=== PATIENT | female | born 1950 | race American Indian/Alaskan Native ===

== ENCOUNTER 2020-11-29 06:37 | Inpatient (IN) | payer BC, MEDICARE ==
[~2020-11-29 06:37] MED LIST: ceFAZolin/STERILE WATER 2 GM/20 ML SYRINGE IV NR
[2020-11-29] MEDS ORDERED: BUPIVACAINE/PF (0.5%) 5 MG/1 ML 30 ML VIAL INFILTRATI ONE ×3 (07:23→09:42)
[2020-11-29] MEDS ORDERED: HEPARIN 10,000 UNITS/10 ML VIAL ONE (07:23)
[2020-11-29] MEDS ORDERED: LIDOCAINE (1%) 10 MG/1 ML VIAL 20 ML MDV ONE (07:23)
[2020-11-29] MEDS ORDERED: SODIUM CHLORIDE P/F VIAL 10 ML 10 ML ONE (07:23)
[2020-11-29] MEDS ORDERED: rifAMPin 600 MG VIAL ONE (07:24)
[2020-11-29] MEDS ORDERED: SODIUM CHLORIDE 0.9% 500 ML 1,000 ML ONE (07:24)
[2020-11-29] MEDS ORDERED: SODIUM CHLORIDE 0.9% 250ML 250 ML ONE (07:44)
[2020-11-29 07:45] LABS: Hematocrit 28.1 % (30.3-42.9); Hemoglobin 9.1 gm/dl (10.1-14.3); Mean Corpuscular HGB Conc 32 % (30-34); Mean Corpuscular Volume 82 fl (79-97); Platelet Count 111 K/mm3 (140-440); Red Blood Count 3.42 M/mm3 (3.65-5.03); Red Cell Distribution Width 17.5 % (13.2-15.2)
[2020-11-29 07:58] LABS: Calcium 9.2 mg/dL (8.4-10.2)
[2020-11-29] MEDS ORDERED: SODIUM CHLORIDE 0.9% 1000 ML 1,000 ML IV SCH (08:00)
--- NOTE | 2020-11-29 08:12 | Anesthesia Consultation ---
Anesthesia Consult and Med Hx Date of service: 11/29/20 - Airway Anesthetic Teeth Evaluation: Good ROM Head & Neck: Adequate Mental/Hyoid Distance: Adequate Mallampati Class: Class II Intubation Access Assessment: Probably Good - Pulmonary Exam CTA: Yes - Pre-Operative Health Status ASA Pre-Surgery Classification: ASA3 Proposed Anesthetic Plan: General Nerve Block: LeftSupraclavicular block - Pulmonary Hx Smoking: No SOB: Yes Home Oxygen Therapy: Yes Hx Sleep Apnea: Yes (Not compliant with CPAP machine use) - Cardiovascular System Hx Hypertension: Yes Hx Coronary Artery Disease: Yes (Chronic Ischemic Heart Disease) Hx Cardia Arrhythmia: Yes (Atrial Fibrillaton) - Central Nervous System Hx Neuromuscular Disorder: No Hx Seizures: No Hx Psychiatric Problems: No - Endocrine Hx Renal Disease: Yes Hx End Stage Renal Disease: Yes Hx Liver Disease: No Hx Non-Insulin Dependent Diabetes: Yes (Remote Hx) Hx Thyroid Disease: Yes (Thyroid Nodule removal) - Hematic Hx Anemia: Yes - Other Systems Hx Alcohol Use: No Hx Substance Use: No Hx Cancer: No Hx Obesity: Yes - Additional Comments Anesthesia Medical History Comments: Patient deied previous anesthesia complications
[2020-11-29] MEDS ORDERED: MIDAZOLAM 2 MG/2 ML INJ ONE (08:20)
--- NOTE | 2020-11-29 08:20 | Anesthesia Day of Surgery ---
Anesthesia Day of Surgery - Day of Surgery Patient Examined: Yes Patient H&P Reviewed: Yes Patient is NPO: Yes Beta Blockers: No Cardiac Clearance: No Pulmonary Clearance: No Hal's Test: N/A
[2020-11-29] MEDS ORDERED: fentaNYL 100 MCG/2 ML INJ ONE (08:21)
[2020-11-29] MEDS ORDERED: propofoL 200 MG/20 ML VIAL IV ONE (08:26)
[2020-11-29] MEDS ORDERED: ONDANSETRON 4 MG/2 ML INJ ONE (08:26)
[2020-11-29] MEDS ORDERED: LIDOCAINE MPF (2%) 20 MG/1 ML VIAL 5 ML ONE (08:26)
[2020-11-29] MEDS ORDERED: HEPARIN 10,000 UNITS/10 ML VIAL IV ONE ×2 (09:42→09:43)
[2020-11-29] MEDS ORDERED: SODIUM CHLORIDE 0.9% P/F 10 ML VIAL IV ONE (09:43)
[2020-11-29] MEDS ORDERED: rifAMPin 600 MG VIAL IV ONE (09:43)
[2020-11-29] MEDS ORDERED: SODIUM CHLORIDE 0.9% IRR 500 ML BOTTLE IR ONE (09:44)
[2020-11-29] MEDS ORDERED: ePHEDrine SULFATE 50 MG/1 ML INJ ONE ×2 (09:52→11:24)
[2020-11-29] MEDS ORDERED: PHENYLEPHRINE/NS 1,000 MCG/10 ML SYRINGE (OR USE) IV ONE ×2 (10:00→11:40)
--- NOTE | 2020-11-29 11:10 | Short Stay Summary ---
Short Stay Documentation Date of service: 11/29/20 Narrative H&P: See H&P - History H&P: obtained from office - Allergies and Medications Current Medications: Allergies No Known Allergies Allergy (Verified 07/26/15 02:53) Home Medications Medication Instructions Recorded Confirmed Last Taken Type Gabapentin [Neurontin] 400 mg PO HS 07/26/15 11/29/20 11/28/20 History carvediloL [Coreg] 12.5 mg PO BID 07/26/15 11/22/20 11/29/20 05:00 History Apixaban [Eliquis] 5 mg PO BID 11/22/20 11/22/20 11/29/20 05:00 History amLODIPine/ATORVASTATIN [Caduet 5 1 each PO QDAY 11/22/20 11/29/20 11/29/20 0 5:00 History mg-20 mg] Active Medications Cefazolin Sodium (Cefazolin/Sterile Water 2 Gm/20 Ml Syringe) 2 gm IV PREOP NR Stop: 11/29/20 23:00 Sodium Chloride (Nacl 0.9% 1000 Ml) 1,000 mls @ 42 mls/hr IV DIRECT MILENA Last Admin: 11/29/20 07:25 Dose: 42 mls/hr Documented by: - Brief post op/procedure progress note Date of procedure: 11/29/20 Pre-op diagnosis: End-Stage Renal Disease Post-op diagnosis: same Procedure: Creation of Left Brachiocephalic Arteriovenous Fistula Anesthesia: MAC, regional Surgeon: HUNTER BUTLER Estimated blood loss: minimal Pathology: none Condition: stable - Disposition Condition at discharge: Good Disposition: 01 HOME / SELF CARE / HOMELESS Short Stay Discharge Plan Activity: other (No heavy lifting with left arm for 2 weeks. You stress ball the left hand as often as possible.) Wound: open to air, keep clean and dry, other (Okay to wash the left arm wound with soap and water but do not soak in water for 2 weeks.) Follow up with: HUNTER BUTLER MD [Staff Physician] - 14 Days Prescriptions: HYDROcodone/APAP 5-325 [[place] 5/325] 1 each PO Q4HR PRN #30 tablet PRN Reason: Pain
--- NOTE | 2020-11-29 11:13 | Operative Report ---
Operative Report Operative Report: Date of procedure: 11/29/2020 Pre-operative diagnosis: End-Stage Renal Disease Post-operative diagnosis: End-Stage Renal Disease Procedure(s): Creation of Left brachial Artery to Cephalic Vein Arteriovenous Fistula Surgeon: Jared Hernandez MD Computational Chemist: None Anesthesia: Regional/MAC EBL: Minimal Counts: Correct Complications: None Condition: Stable Findings: Successful creation of left brachiocephalic arteriovenous fistula with palpable thrill and palpable radial pulse at the completion of the case. Specimen: None Indications: The patient is a 70-year-old female with a history of end-stage renal disease who is currently on hemodialysis through a right internal jugular permacath. She is in need of long-term dialysis access and did not have adequate vein for creation of an AV fistula. She was offered an AV graft and was given the risk, benefits, and alternative procedures and consented to the procedure. Description of Procedure: The patient had a regional block of the patient's left arm was performed in the preoperative area prior to being transported to the operating room. Once the regional block was performed the patient was transported to the operating room and adequate sedation was given. When the patient was sedated a timeout was performed and the patient's left arm was then prepped and draped in normal sterile fashion. The patient's vein mapping demonstrated she did not have adequate vein for creation of an arteriovenous fistula however once she had a regional block and was in the operating room her veins were clearly dilated and her cephalic vein appeared to be visibly adequate for creation of a fistula. I used the ultrasound to evaluate the cephalic vein along its course in the upper arm and it was of adequate size and without thrombus. I made the decision to create a fistula and abandon the plan for creation of an arteriovenous graft. A transverse incision was then made and carried down to the cephalic vein using sharp dissection. The vein was dissected out both proximally and distally and suture ligated and divided distally. I flushed the vein with heparinized saline and flow was controlled with a bulldog clamp. I then dissected out the brachial artery through this incision circumferentially both proximal and distal and controlled the artery with vessel loops. I systemically heparinized the patient with 3000 units of heparin IV and used angled DeBakey clamps to control flow through the artery. I created an arteriotomy using an 11 blade and Marie scissors. I created an end to side anastomosis between the cephalic vein and brachial artery using a 6-0 Prolene in running fashion. Prior to completing the anastomosis I flashed the artery both proximally and distally and then flushed the anastomosis with heparinized saline to remove any debris. I then completed the anastomosis and removed all clamps allowing flow into the fistula which had an adequate thrill. I achieved hemostasis with a combination of Quick Clot and electrocautery. Once hemostasis had been achieved I closed the wound in 2 laye rs using a 3-0 Vicryl in a running fashion in the deep dermal layer and a 4-0 Monocryl in running fashion in the subcuticular layer. I then dressed the wound with Dermabond. The patient tolerated the procedure well. All sponge, needle, and instrument counts were correct. The patient was taken to the recovery area in stable condition.
[2020-11-29] MEDS ORDERED: ONDANSETRON 4 MG/2 ML INJ IV PRN ×2 (11:30→17:28)
[2020-11-29] MEDS ORDERED: ePHEDrine SULFATE 50 MG/1 ML INJ IV ONE ×4 (11:35→13:25)
[2020-11-29] MEDS ORDERED: ePHEDrine SULFATE 50 MG/1 ML INJ IV NR ×2 (12:20→15:30)
[2020-11-29] MEDS ORDERED: VASOPRESSIN 20 UNIT/1 ML INJ IV ONE ×2 (13:30→15:30)
[2020-11-29] MEDS ORDERED: ePHEDrine SULFATE 50 MG/1 ML INJ IM ONE (13:30)
--- NOTE | 2020-11-29 15:59 | XRay Report ---
CHEST 1 VIEW 11/29/2020 3:32 PM INDICATION / CLINICAL INFORMATION: R/O PNEUMOTHORAX, PULMONARY EDEMA. COMPARISON: 07/25/2015. FINDINGS: SUPPORT DEVICES: Right IJ permacath has its tip over the right atrium. No pneumothorax. HEART / MEDIASTINUM: Moderate cardiomegaly. LUNGS / PLEURA: Mild vascular congestion/edema. Left base not well evaluated. Suspect small left basi lar effusion.. ADDITIONAL FINDINGS: No significant additional findings. IMPRESSION: 1. Right IJ dialysis catheter placement without complication. 2. Cardiomegaly with mild vascular congestion/edema. 3. Small left basilar effusion. The retrocardiac area is not well evaluated. Signer Name: Galdino Kimble MD Signed: 11/29/2020 3:53 PM Workstation Name: [id number]
--- NOTE | 2020-11-29 17:02 | History and Physical Report ---
History of Present Illness Date of examination: 11/29/20 Date of admission: 11/29/2020 Chief complaint: Hypotensive in PACU after surgery. History of present illness: 70-year-old female with history of end-stage renal disease on hemodialysis through a right internal jugular permacath had AV fistula creation from left brachial artery to cephalic vein arteriovenous fistula. Patient needs AV fistula for long-term dialysis access. Patient was offered AV graft removal given the risk benefits and alternative procedures consented to the procedure. Postop patient was hypotensive hence patient could not be discharged and was admitted to telemetry for further care. Patient was hypotensive for 1 hour and then normalized blood pressure. Patient being admitted to telemetry for observation. Saturations were around 92% on room air. Transiently very low postop but normalized. Patient responsive and alert and oriented. No fever or chills. Patient blood pressure was 100/65 at the time of admission to telemetry. Past History Past Medical History: hypertension, renal failure Past Surgical History: Other (AV fistula creation) Social history: lives with family, full code Family history: hypertension Medications and Allergies Allergies Allergy/AdvReac Type Severity Reaction Status Date / Time No Known Allergies Allergy Verified 07/26/15 02:53 Home Medications Medication Instructions Recorded Confirmed Last Taken Type Gabapentin 400 mg PO HS 07/26/15 11/29/20 11/28/20 History carvediloL [Coreg] 12.5 mg PO BID 07/26/15 11/22/20 11/29/20 05:00 History Apixaban [Eliquis] 5 mg PO BID 11/22/20 11/22/20 11/29/20 05:00 History amLODIPine/ATORVASTATIN [Caduet 5 1 each PO QDAY 11/22/20 11/29/20 11/29/20 05:00 History mg-20 mg] HYDROcodone/APAP 5-325 [[place] 1 each PO Q4HR PRN #30 tablet 11/29/20 Unknown Rx 5/325] Active Meds: Active Medications Cefazolin Sodium (Cefazolin/Sterile Water 2 Gm/20 Ml Syringe) 2 gm IV PREOP NR Stop: 11/29/20 23:00 Sodium Chloride (Nacl 0.9% 1000 Ml) 1,000 mls @ 42 mls/hr IV DIRECT MILENA Last Admin: 11/29/20 07:25 Dose: 42 mls/hr Documented by: Review of Systems All systems: negative Constitutional: no weight loss, no weight gain, no fever, no chills Ears, nose, mouth and throat: no ear pain, no ear discharge, no tinnitis, no decreased hearing Breasts: deferred Cardiovascular: no chest pain, no orthopnea, no lightheadedness, no shortness of breath Gastrointestinal: no abdominal pain, no nausea, no vomiting, no diarrhea, no constipation, no change in bowel habits, no hematemesis, no coffee ground emesis Musculoskeletal: no neck stiffness, no neck pain, no shooting arm pain, no arm numbness/tingling, no low back pain, no shooting leg pain, no leg numbness/tingling Integumentary: no rash, no pruritis, no redness Neurological: no head injury, no transient paralysis, no paralysis, no weakness, no lack of coordination Psychiatric: no anxiety, no memory loss, no change in sleep habits, no sleep disturbances, no insomnia Endocrine: no cold intolerance, no heat intolerance, no polyphagia, no excessive thirst Hematologic/Lymphatic: no easy bruising, no easy bleeding Allergic/Immunologic: no urticaria, no allergic rhinitis, no wheezing Exam - Constitutional Vitals: Temp Pulse Resp BP Pulse Ox 97.3 F L 99 H 20 96/59 100 11/29/20 16:30 11/29/20 16:45 11/29/20 16:45 11/29/20 16:45 11/29/20 16:45 General appearance: Present: no acute distress, well-nourished - EENT Eyes: Present: PERRL ENT: hearing intact, clear oral mucosa - Neck Neck: Present: supple, normal ROM - Respiratory Respiratory effort: normal Respiratory: bilateral: CTA - Cardiovascular Heart rate: 98 Rhythm: regular Heart Sounds: Present: S1 & S2. Absent: rub, click - Extremities Extremities: pulses symmetrical, No edema Peripheral Pulses: within normal limits - Abdominal General gastrointestinal: Present: soft, non-tender, non-distended, normal bowel sounds Female genitourinary: Present: normal - Integumentary Integumentary: Present: clear, warm, dry - Musculoskeletal Musculoskeletal: gait normal, strength equal bilaterally - Psychiatric Psychiatric: appropriate mood/affect, intact judgment & insight - Neurologic Neurologic: CNII-XII intact, moves all extremities - Allied Health Allied health notes reviewed: nursing, case management HEART Score - HEART Score History: Slightly suspicious Risk factors: 1-2 risk factors Troponin: < normal limit - Critical Actions Critical Actions: 0-3 pts:0.9-1.7%risk of adverse cardiac event.Candidate for discharge Results - Labs CBC & Chem 7: 11/29/20 18:22 11/30/20 04:11 Labs: Laboratory Last Values WBC 8.4 K/mm3 (4.5-11.0) 11/29/20 07:25 RBC 3.42 M/mm3 (3.65-5.03) L 11/29/20 07:25 Hgb 9.1 gm/dl (10.1-14.3) L 11/29/20 07:25 Hct 28.1 % (30.3-42.9) L 11/29/20 07:25 MCV 82 fl (79-97) 11/29/20 07:25 MCH 27 pg (28-32) L 11/29/20 07:25 MCHC 32 % (30-34) 11/29/20 07:25 RDW 17.5 % (13.2-15.2) H 11/29/20 07:25 Plt Count 111 K/mm3 (140-440) L 11/29/20 07:25 ABG pH 7.211 (7.320-7.450) L 11/29/20 14:23 POC ABG pCO2 50.4 mmHg (32.0-48.0) H 11/29/20 14:23 POC ABG pO2 60.8 mmHg (83-108) L 11/29/20 14:23 POC ABG HCO3 19.8 11/29/20 14:23 ABG O2 Saturation 81.7 (0-100) 11/29/20 14:23 POC ABG Base Excess -8.0 11/29/20 14:23 ABG Hemoglobin 10.4 (12.0-17.5) L 11/29/20 14:23 ABG Oxyhemoglobin 80.9 (94-98) L 11/29/20 14:23 ABG Methemoglobin 0.3 (0.0-1.5) 11/29/20 14:23 ABG Sodium 134.5 mmol/L (136.0-145.0) L 11/29/20 14:23 ABG Potassium 6.2 mmol/L (3.40-4.50) H 11/29/20 14:23 ABG Chloride 101.0 mmol/L (98-107) 11/29/20 14:23 ABG Glucose 76 mg/dL (65-95) 11/29/20 14:23 Carboxyhemoglobin 0.7 (0.5-1.5) 11/29/20 14:23 FiO2 % 100.0 11/29/20 14:23 Sodium 135 mmol/L (137-145) L 11/29/20 07:25 Potassium 4.9 mmol/L (3.6-5.0) 11/29/20 07:25 Chloride 97.8 mmol/L (98-107) L 11/29/20 07:25 Carbon Dioxide 26 mmol/L (22-30) 11/29/20 07:25 Anion Gap 16 mmol/L 11/29/20 07:25 BUN 34 mg/dL (7-17) H 11/29/20 07:25 Creatinine 3.2 mg/dL (0.6-1.2) H 11/29/20 07:25 Estimated GFR 17 ml/min 11/29/20 07:25 BUN/Creatinine Ratio 11 % 11/29/20 07:25 Glucose 118 mg/dL (65-100) H 11/29/20 07:25 POC Glucose 106 mg/dL (70-105) H 11/29/20 11:00 Calcium 9.2 mg/dL (8.4-10.2) 11/29/20 07:25 Arterial Blood Glucose 76 mg/dL (65-95) 11/29/20 14:23 Arterial Blood Ionized Calcium 4.6 mg/dL (4.6-5.3) 11/29/20 14:23 Coronavirus (PCR) Negative (Negative) 11/22/20 13:15 Short CBC 11/29/20 11/29/20 Range/Units 07:25 18:22 WBC 8.4 12.2 H (4.5-11.0) K/mm3 Hgb 9.1 L 9.8 L (10.1-14.3) gm/dl Hct 28.1 L 32.9 (30.3-42.9) % Plt Count 111 L 94 L (140-440) K/mm3 BMP 11/29/20 11/29/20 11/30/20 07:25 18:22 04:11 Sodium 135 L 137 134 L Potassium 4.9 5.6 H 7.3 H* D Chloride 97.8 L 99.3 99.7 Carbon Dioxide 26 20 L 12 L D BUN 34 H 38 H 40 H Creatinine 3.2 H 3.5 H 3.9 H Glucose 118 H 124 H 86 Calcium 9.2 8.8 8.7 Liver Function 11/30/20 Range/Units 04:11 Total Bilirubin 0.80 (0.1-1.2) mg/dL AST 4588 H (5-40) units/L ALT 1822 H (7-56) units/L Alkaline Phosphatase 82 (35-129) units/L Albumin 3.0 L (3.9-5) g/dL Short CBC 11/29/20 11/29/20 Range/Units 07:25 18:22 WBC 8.4 12.2 H (4.5-11.0) K/mm3 Hgb 9.1 L 9.8 L (10.1-14.3) gm/dl Hct 28.1 L 32.9 (30.3-42.9) % Plt Count 111 L 94 L (140-440) K/mm3 [facility] 11/29/20 11/29/20 11/30/20 07:25 18:22 04:11 Sodium 135 L 137 134 L Potassium 4.9 5.6 H 7.3 H* D Chloride 97.8 L 99.3 99.7 Carbon Dioxide 26 20 L 12 L D BUN 34 H 38 H 40 H Creatinine 3.2 H 3.5 H 3.9 H Glucose 118 H 124 H 86 Calcium 9.2 8.8 8.7 Liver Function 11/30/20 Range/Units 04:11 Total Bilirubin 0.80 (0.1-1.2) mg/dL AST 4588 H (5-40) units/L ALT 1822 H (7-56) units/L Alkaline Phosphatase 82 (35-129) units/L Albumin 3.0 L (3.9-5) g/dL Montiel/IV: Voiding Method Diaper Assessment and Plan Advance Directives: Yes (Full code) VTE prophylaxis?: Chemical Plan of care discussed with patient/family: Yes - Patient Problems (1) Hypotension Current Visit: Yes Status: Acute Qualifiers: Hypotension type: unspecified hypotension type Qualified Code(s): I95.9 - Hypotension, unspecified Plan to address problem: Etiology unclear Postoperative hypotension Effects of anesthesia?? Patient stabilized in PACU Blood pressure 94/63 to 100/65 IV fluid bolus if necessary IV Levophed if necessary Prognosis seems fair (2) Acute respiratory failure with hypoxia and hypercarbia Current Visit: Yes Status: Acute Plan to address problem: PCO2 is 50 and pH is 7.21 DuoNebs [id number] and as needed (3) Hyperkalemia Current Visit: Yes Status: Acute Plan to address problem: Treated (4) End stage renal disease on dialysis Current Visit: Yes Status: Chronic Plan to address problem: We will consult nephrology for hemodialysis through [facility] (5) DVT prophylaxis Current Visit: No Status: Acute Plan to address problem: On anticoagulation and GI prophylaxis
[2020-11-29] MEDS ORDERED: DEXTROSE 50% IN WATER (25GM) 50 ML SYRINGE IV ONE ×3 (17:27→18:20)
[2020-11-29] MEDS ORDERED: HYDROmorphone 1 MG/1 ML INJ IV PRN (17:28)
[2020-11-29] MEDS ORDERED: ACETAMINOPHEN 325 MG TAB PO PRN (17:28)
[2020-11-29] MEDS ORDERED: MORPHINE 2 MG/1 ML INJ IV PRN (17:28)
[2020-11-29 18:32] LABS: Basophils % (Auto) 0.4 % (0.0-1.8); Lymphocytes # (Auto) 0.8 K/mm3 (1.2-5.4); Lymphocytes % (Auto) 6.7 % (13.4-35.0); Mean Corpuscular HGB Conc 30 % (30-34); Mean Corpuscular Volume 88 fl (79-97); Monocytes # (Auto) 0.9 K/mm3 (0.0-0.8); Monocytes % (Auto) 7.2 % (0.0-7.3); Red Blood Count 3.75 M/mm3 (3.65-5.03); Red Cell Distribution Width 18.4 % (13.2-15.2)
[2020-11-29 18:36] LABS: Hematocrit 32.9 % (30.3-42.9); Hemoglobin 9.8 gm/dl (10.1-14.3)
[2020-11-29 18:40] LABS: Platelet Count 94 K/mm3 (140-440)
[2020-11-29 19:08] LABS: Calcium 8.8 mg/dL (8.4-10.2)
[2020-11-29] MEDS ORDERED: SODIUM CHLORIDE 0.9% 500 ML 500 ML ONE (22:06)
[2020-11-29] MEDS ORDERED: SODIUM CHLORIDE 0.9% 500 ML 500 ML IV ONE (22:10)
[2020-11-30] MEDS ORDERED: DEXTROSE 50% IN WATER (25GM) 50 ML SYRINGE IV ONE ×2 (01:33→16:45)
[2020-11-30] MEDS ORDERED: DEXTROSE 50% IN WATER (25GM) 50 ML VIAL IV ONE ×2 (01:40→09:13)
[2020-11-30] MEDS ORDERED: NORepinephrine/NS 4 MG-250 ML 4 MG/250 ML BAG IV ONE (02:41)
--- NOTE | 2020-11-30 02:57 | Event Note ---
Date: 11/30/20 CODE BEN was called . Patient was found unresponsive. CPR was given as per ACLS protocol. Patient was given 7 epinephrine 2 bicarb and 1 calcium gluconate. Patient was found asystole. Then patient was found V. fib patient was given 1 shock then we resumed CPR. Patient regained ROSC. Patient was intubated by the ER physician. It was a difficult intubation. We transfer the patient to the ICU. We will consult critical care evaluation. Family is called but they are not picking up the phone. We left a voicemail
--- NOTE | 2020-11-30 03:26 | XRay Report ---
. XR chest 1V ap, XR abdomen 1V ap INDICATION / CLINICAL INFORMATION: DOBBHOFF PLACEMENT. COMPARISON: 11/29/2020 FINDINGS: SUPPORT DEVICES: Endotracheal tube terminates in the midtrachea. Right IJ central venous catheter is unchanged. Enteric catheter tip and side-port project in the stomach. HEART /PULMONARY VASCULATURE: Unchanged. LUNGS / PLEURA: Unchanged interstitial edema. No new or increasing airspace consolidation. No pneumot horax. ABDOMEN: Nonspecific gaseous distention of the small bowel, may reflect ileus. No free air. IMPRESSION: 1. Satisfactory position of endotracheal tube and enteric catheter. 2. Mild gaseous distention of the small bowel in the partially imaged abdomen, may reflect ileus. Signer Name: Ruperto Rios MD Signed: 11/30/2020 3:22 AM Workstation Name: [id number]
[2020-11-30] MEDS ORDERED: SODIUM BICARB 8.4% 50 MEQ/50 ML SYRINGE IV ONE ×4 (03:57→16:45)
[2020-11-30 04:45] LABS: Calcium 8.7 mg/dL (8.4-10.2)
--- NOTE | 2020-11-30 05:06 | Event Note ---
Date: 11/30/20 Patient is coded again. Patient is found PEA. Patient was given CPR as per ACLS protocol. 3 epi was given. 1 bicarb 1 1 calcium gluconate and patient was found to be febrile patient is given shock patient regained a ROSC. We will put the patient on epi drip and bicarb drip. Patient potassium is 7 we will put the patient on insulin and D50 with talk with the on-call bone process operator Dr. Aldridge for stat hemodialysis. Prognosis is poor. We consulted critical care evaluation. Case discussed with the daughter who is coming to see the patient
[2020-11-30] MEDS ORDERED: INSULIN REGULAR, HUMAN 100 UNITS/1 ML IV ONE (05:14)
[2020-11-30] MEDS ORDERED: DEXTROSE 50% IN WATER (25GM) 50 ML SYRINGE IV PRN (05:15)
[2020-11-30] MEDS ORDERED: VASOPRESSIN 20 UNIT in SODIUM CHLORIDE 0.9% 100 ML IV SCH (06:00)
[2020-11-30] MEDS ORDERED: SODIUM BICARBONATE 150 MEQ in DEXTROSE 5% IN WATER 1,000 ML IV SCH (06:00)
[2020-11-30] MEDS ORDERED: EPINEPHrine 1 MG/1 ML 16 MG in SODIUM CHLORIDE 0.9% 250ML 234 ML IV SCH (06:00)
[2020-11-30] MEDS ORDERED: IPRATROPIUM/ALBUTEROL SULFATE 3 ML AMPUL.NEB IH PRN (06:29)
[2020-11-30] MEDS ORDERED: CALCIUM GLUCONATE 2,000 MG in SODIUM CHLORIDE 0.9% 100 ML IV ONE (06:45)
[2020-11-30] MEDS ORDERED: INSULIN REGULAR, HUMAN 100 UNITS/1 ML ONE (07:51)
[2020-11-30] MEDS: NORepinephrine/NS 4 MG-250 ML 4 MG/250 ML BAG IV SCH ×4 (08:00→15:30)
[2020-11-30] MEDS ORDERED: IPRATROPIUM/ALBUTEROL SULFATE 3 ML AMPUL.NEB IH SCH (08:00)
[2020-11-30] MEDS ORDERED: CALCIUM CHLORIDE 1,000 MG/10 ML SYRINGE IV ONE ×2 (09:13→16:45)
[2020-11-30] MEDS ORDERED: EPINEPHrine 30 MG/30 ML INJ IV ONE (09:13)
[2020-11-30] MEDS ORDERED: EPINEPHrine 1 MG/10 ML SYRINGE ONE ×2 (09:13→16:45)
--- NOTE | 2020-11-30 09:18 | Consultation ---
History of Present Illness Consult date: 11/30/20 Requesting physician: SALLY SANCHEZ Reason for consult: other (cardiac arrest) History of present illness: 70 y/o female with ESRD, had graft placed on yesterday. Coded last night, intubated with ROSC. Now in the ICU on Epi and Maxed on levo. Intubated and on FiO2 of 90% and PEEP of 6. BP is actually elevated so can wean pressors. Past History Past Medical History: hypertension, renal failure Past Surgical History: Other (AV fistula creation) Social history: lives with family, full code Family history: hypertension Medications and Allergies Allergies Allergy/AdvReac Type Severity Reaction Status Date / Time No Known Allergies Allergy Verified 07/26/15 02:53 Home Medications Medication Instructions Recorded Confirmed Last Taken Type Gabapentin 400 mg PO HS 07/26/15 11/29/20 11/28/20 History carvediloL [Coreg] 12.5 mg PO BID 07/26/15 11/22/20 11/29/20 05:00 History Apixaban [Eliquis] 5 mg PO BID 11/22/20 11/22/20 11/29/20 05:00 History amLODIPine/ATORVASTATIN [[place] 5 1 each PO QDAY 11/22/20 11/29/20 11/29/20 05:00 History mg-20 mg] HYDROcodone/APAP 5-325 [[place] 1 each PO Q4HR PRN #30 tablet 11/29/20 Unknown Rx 5/325] Active Meds: Active Medications Acetaminophen (Acetaminophen 325 Mg Tab) 650 mg PO Q4H PRN PRN Reason: Pain MILD(1-3)/Fever >100.5/[place] Albuterol/Ipratropium (Ipratropium/Albuterol Sulfate 3 Ml Ampul.Neb) 1 ampul IH QIDRT MILENA Dextrose (Dextrose 50% In Water (25gm) 50 Ml Syringe) 25 ml IV Q30MIN PRN; Protocol PRN Reason: Hypoglycemia Hydromorphone HCl (Hydromorphone 1 Mg/1 Ml Inj) 0.5 mg IV Q3H PRN PRN Reason: Pain , Severe (7-10) Sodium Chloride (Nacl 0.9% 1000 Ml) 1,000 mls @ 75 mls/hr IV DIRECT MILENA Last Admin: 11/29/20 07:25 Dose: 42 mls/hr Documented by: Epinephrine 16 mg/ Sodium (Chloride) 250 mls @ 1.875 mls/hr IV TITR MILENA; Protocol Stop: 12/01/20 23:59 Last Titration: 11/30/20 08:00 Dose: 10 mcg/min, 9.375 mls/hr Documented by: Sodium Bicarbonate 150 meq/ (Dextrose) 1,150 mls @ 125 mls/hr IV DIRECT MILENA Last Admin: 11/30/20 08:10 Dose: 125 mls/hr Documented by: Norepinephrine (Levophed Drip 4 Mg/Ns 250 Ml) 4 mg in 250 mls @ 7.5 mls/hr IV TITR MILENA; Protocol Last Admin: 11/30/20 08:44 Dose: 20 mcg/min, 75 mls/hr Documented by: Vasopressin 20 unit/ Sodium (Chloride) 101 mls @ 9.09 mls/hr IV TITR MILENA; Protocol Morphine Sulfate (Morphine 2 Mg/1 Ml Inj) 2 mg IV Q4H PRN PRN Reason: Pain, Moderate (4-6) Ondansetron HCl (Ondansetron 4 Mg/2 Ml Inj) 4 mg IV Q8H PRN PRN Reason: Nausea And Vomiting Sodium Chloride (Sodium Chloride 0.9% 10 Ml Flush Syringe) 10 ml IV BID MILENA Sodium Chloride (Sodium Chloride 0.9% 10 Ml Flush Syringe) 10 ml IV PRN PRN PRN Reason: LINE FLUSH Physical Examination Vital signs: Vital Signs Temp Pulse Resp BP Pulse Ox 99.1 F 110 H 22 91/57 87 11/22/20 13:20 11/22/20 13:20 11/22/20 13:20 11/22/20 13:20 11/22/20 13:20 General appearance: appears uncomfortable, other (orally intubated) Eyes: non-icteric ENT: other (orally intubated) Effort: mildly labored Results - Laboratory Findings CBC and BMP: 11/29/20 18:22 11/30/20 04:11 ABG ABG pH 7.373 (7.320-7.450) 11/30/20 08:46 POC ABG pCO2 17.2 mmHg (32.0-48.0) L 11/30/20 08:46 POC ABG pO2 145.6 mmHg (83-108) H 11/30/20 08:46 POC ABG HCO3 9.8 11/30/20 08:46 ABG O2 Saturation 99.0 (0-100) 11/30/20 08:46 Abnormal lab findings: Abnormal Labs 11/29/20 11/29/20 11/29/20 07:25 07:25 11:00 WBC RBC 3.42 L Hgb 9.1 L Hct 28.1 L MCH 27 L RDW 17.5 H Plt Count 111 L Lymph % (Auto) Lymph # (Auto) [place] # (Auto) Seg Neutrophils % Seg Neutrophils # ABG pH POC ABG pCO2 POC ABG pO2 ABG Hemoglobin ABG Oxyhemoglobin ABG Sodium ABG Potassium ABG Chloride ABG Glucose Carboxyhemoglobin Sodium 135 L Potassium Chloride 97.8 L Carbon Dioxide BUN 34 H Creatinine 3.2 H Glucose 118 H POC Glucose 106 H AST ALT Total Protein Albumin Arterial Blood Glucose Arterial Blood Ionized Calcium 11/29/20 11/29/20 11/29/20 14:23 17:23 18:22 WBC 12.2 H RBC Hgb 9.8 L Hct MCH 26 L RDW 18.4 H Plt Count 94 L Lymph % (Auto) 6.7 L Lymph # (Auto) 0.8 L [place] # (Auto) 0.9 H Seg Neutrophils % 85.7 H Seg Neutrophils # 10.4 H ABG pH 7.211 L POC ABG pCO2 50.4 H POC ABG pO2 60.8 L ABG Hemoglobin 10.4 L ABG Oxyhemoglobin 80.9 L ABG Sodium 134.5 L ABG Potassium 6.2 H ABG Chloride ABG Glucose Carboxyhemoglobin Sodium Potassium Chloride Carbon Dioxide BUN Creatinine Glucose POC Glucose 49 L AST ALT Total Protein Albumin Arterial Blood Glucose Arterial Blood Ionized Calcium 11/29/20 11/30/20 11/30/20 18:22 01:32 03:12 WBC RBC Hgb Hct MCH RDW Plt Count Lymph % (Auto) Lymph # (Auto) [place] # (Auto) Seg Neutrophils % Seg Neutrophils # ABG pH 7.306 L POC ABG pCO2 26.5 L POC ABG pO2 172.0 H ABG Hemoglobin 9.4 L ABG Oxyhemoglobin 98.6 H ABG Sodium ABG Potassium 4.9 H ABG Chloride ABG Glucose 143 H Carboxyhemoglobin 0.3 L Sodium Potassium 5.6 H Chloride Carbon Dioxide 20 L BUN 38 H Creatinine 3.5 H Glucose 124 H POC Glucose < 10 L AST ALT Total Protein Albumin Arterial Blood Glucose 143 H Arterial Blood Ionized Calcium 4.4 L 11/30/20 11/30/20 04:11 08:46 WBC RBC Hgb Hct MCH RDW Plt Count Lymph % (Auto) Lymph # (Auto) [place] # (Auto) Seg Neutrophils % Seg Neutrophils # ABG pH POC ABG pCO2 17.2 L POC ABG pO2 145.6 H ABG Hemoglobin 7.5 L ABG Oxyhemoglobin ABG Sodium ABG Potassium ABG Chloride 119.0 H ABG Glucose Carboxyhemoglobin Sodium 134 L Potassium 7.3 H* D Chloride Carbon Dioxide 12 L D BUN 40 H Creatinine 3.9 H Glucose POC Glucose AST 4588 H ALT 1822 H Total Protein 5.9 L Albumin 3.0 L Arterial Blood Glucose Arterial Blood Ionized Calcium 3.6 L - Diagnostic Findings Chest x-ray: image reviewed Assessment and Plan 70 y/o female s/p cardiac arrest on the floor with ESRD on HD, with hyperkalemia. 1. HD per renal now that BP is stable 2. Wean Pressors as tolerated 3. Hold all sedatives as of right now 4. Guarded prognosis CCT 31 minutes.
--- NOTE | 2020-11-30 10:04 | Electrocardiograph Report ---
[facility] Test Date: 2020-11-29 Test Time: 13:51:46 Pat Name: WANDA ARROYO Department: Room: A254 Gender: F Case Therapist: DEE DEE : 1950 Requested By: MONICA CARTAGENA Order Number: [id number] Reading MD: Chet Rivera Measurements Intervals [place] Rate: 86 P: CT: QRS: -5 QRSD: 83 T: 16 QT: 403 QTc: 484 Interpretive Statements Atrial fibrillation Inferior infarct, old No previous ECG available for comparison Electronically Signed On 11-30-2020 10:04:40 EDT by Chet Rivera
--- NOTE | 2020-11-30 11:10 | Procedure Note ---
Date of procedure: 11/30/20 Pre-op diagnosis: s/p cardiac arrest, acute hypoxic resp failure, ckd on hd Post-op diagnosis: same Procedure: Two physician consent for emergent procedure (need for central venous access for vasopressor use ; Dr Rico and Dr. Mcgee aware Triple lumen venous catheter was placed in left femoral vein. Sterile technique was utilized. Area prepped with chlorhexidine/ full body drape utilized. Ultrasound guidance was used to find and access the vessel. Line was placed without difficulty. Line was sutured, biopatch placed and tegaderm dressing applied. Pt tolerated procedure well. VS remained stable throughout procedure. Nurse aware new CVL in place. CCT 60 mins (time spent placing line not included in daily critical care time) Anesthesia: local Surgeon: MARICARMEN BEAN Estimated blood loss: minimal Condition: critical Disposition: ICU
--- NOTE | 2020-11-30 14:43 | Post Anesthesia Evaluation ---
- Post Anesthesia Evaluation Patient Participated: No Airway Patent: Yes Stable Respiratory Function: Yes Nausea/Vomiting: Yes Temp > 96.8F: Yes Pain Manageable: Yes Adequeate Hydration: Yes Anesthesia Complications: No Block Receding Appropriately: Not Applicable Patient on Ventilator: Yes (On multiple pressors and being dialyzed. )
--- NOTE | 2020-11-30 14:45 | Consultation ---
History of Present Illness - Reason for Consult Consult date: 11/30/20 end stage renal disease - History of Present Illness 70-year-old female with history of end-stage renal disease on hemodialysis through a right internal jugular permacath had AV fistula creation from left brachial artery to cephalic vein arteriovenous fistula. Patient needs AV fistula for long-term dialysis access. Postop patient was hypotensive hence patient could not be discharged. her condition was complicated cardiac arrest x2 and was found to have severe hyperkalemia, STAT HD overnight ordered but could not be done due to access malfunction. vascath was placed again this morning by ICU team. Past History Past Medical History: hypertension, renal failure Past Surgical History: Other (AV fistula creation) Social history: lives with family, full code Family history: hypertension Medications and Allergies Allergies Allergy/AdvReac Type Severity Reaction Status Date / Time No Known Allergies Allergy Verified 07/26/15 02:53 Home Medications Medication Instructions Recorded Confirmed Last Taken Type Gabapentin 400 mg PO HS 07/26/15 11/29/20 11/28/20 History carvediloL [Coreg] 12.5 mg PO BID 07/26/15 11/22/20 11/29/20 05:00 History Apixaban [Eliquis] 5 mg PO BID 11/22/20 11/22/20 11/29/20 05:00 History amLODIPine/ATORVASTATIN [Caduet 5 1 each PO QDAY 11/22/20 11/29/20 11/29/20 05:00 History mg-20 mg] HYDROcodone/APAP 5-325 [[place] 1 each PO Q4HR PRN #30 tablet 11/29/20 Unknown Rx 5/325] Active Meds: Active Medications Acetaminophen (Acetaminophen 325 Mg Tab) 650 mg PO Q4H PRN PRN Reason: Pain MILD(1-3)/Fever >100.5/[place] Albuterol/Ipratropium (Ipratropium/Albuterol Sulfate 3 Ml Ampul.Neb) 1 ampul IH QIDRT [facility] Last Admin: 11/30/20 11:46 Dose: Not Given Documented by: Dextrose (Dextrose 50% In Water (25gm) 50 Ml Syringe) 25 ml IV Q30MIN PRN; Protocol PRN Reason: Hypoglycemia Hydromorphone HCl (Hydromorphone 1 Mg/1 Ml Inj) 0.5 mg IV Q3H PRN PRN Reason: Pain , Severe (7-10) Sodium Chloride (Nacl 0.9% 1000 Ml) 1,000 mls @ 75 mls/hr IV DIRECT MILENA Last Admin: 11/29/20 07:25 Dose: 42 mls/hr Documented by: Epinephrine 16 mg/ Sodium (Chloride) 250 mls @ 1.875 mls/hr IV TITR MILENA; Protocol Stop: 12/01/20 23:59 Last Titration: 11/30/20 08:00 Dose: 10 mcg/min, 9.375 mls/hr Documented by: Sodium Bicarbonate 150 meq/ (Dextrose) 1,150 mls @ 125 mls/hr IV DIRECT MILENA Last Admin: 11/30/20 08:10 Dose: 125 mls/hr Documented by: Norepinephrine (Levophed Drip 4 Mg/Ns 250 Ml) 4 mg in 250 mls @ 7.5 mls/hr IV TITR MILENA; Protocol Last Admin: 11/30/20 08:44 Dose: 20 mcg/min, 75 mls/hr Documented by: Vasopressin 20 unit/ Sodium (Chloride) 101 mls @ 9.09 mls/hr IV TITR MILENA; Protocol Morphine Sulfate (Morphine 2 Mg/1 Ml Inj) 2 mg IV Q4H PRN PRN Reason: Pain, Moderate (4-6) Ondansetron HCl (Ondansetron 4 Mg/2 Ml Inj) 4 mg IV Q8H PRN PRN Reason: Nausea And Vomiting Sodium Chloride (Sodium Chloride 0.9% 10 Ml Flush Syringe) 10 ml IV BID MILENA Sodium Chloride (Sodium Chloride 0.9% 10 Ml Flush Syringe) 10 ml IV PRN PRN PRN Reason: LINE FLUSH Review of Systems ROS unobtainable: due to mental status Exam - Vital Signs Vital signs: Vital Signs Temp Pulse Resp BP Pulse Ox 99.1 F 110 H 22 91/57 87 11/22/20 13:20 11/22/20 13:20 11/22/20 13:20 11/22/20 13:20 11/22/20 13:20 - General Appearance General appearance: sedated on ventilator, intubated EENT: ATNC, PERRL Neck: Present: neck supple Heart: tachycardia Neurologic: other (intubated) Musculoskeletal: Present: deferred Psychiatric: other (itubated) Results - Lab Results 11/29/20 18:22 11/30/20 04:11 Most recent lab results ABG pH 7.373 (7.320-7.450) 11/30/20 08:46 ABG O2 Saturation 99.0 (0-100) 11/30/20 08:46 Calcium 8.7 mg/dL (8.4-10.2) 11/30/20 04:11 Assessment and Plan ESRD on HD Hyperkalemia Cardiac arrest Hypotension. HD ordered STAT this AM but could not be done due to access HD will attempt again after new vascath placement will assess HD needs daily renally dose meds
[2020-11-30 16:34] LABS: Hepatitis C Virus Antibody Non-Reactive (NonReactive)
[2020-11-30 16:41] LABS: Hepatitis B Surface Antigen Nonreactive (Negative)
[2020-11-30] MEDS ORDERED: PANTOPRAZOLE 80 MG in SODIUM CHLORIDE 0.9% 100 ML IV SCH (17:00)
--- NOTE | 2020-11-30 17:20 | Progress Note ---
Assessment and Plan Assessment and plan: This is a 70-year-old female with BUBBA, CAD, atrial fibrillation on Eliquis, ESRD on HD, DM, anemia, morbid obesity admitted post cardiac arrest x2. Neuro: Acute metabolic encephalopathy -S/p cardiac arrest x2 -Reorientation ICU -Currently not any sedation -Intact cough/gag CV: Hypotension, s/p cardiac arrest x2, A. fib RVR, h/o htn/A. fib (on home metoprolol and beta-mitali) -Patient was on Levophed and epinephrine drip this morning maxed -MAP goal greater than 65 -Blood pressure monitor per protocol -Wean as tolerated -This afternoon epinephrine drip stopped due to A. fib with RVR -RN to start vasopressin as needed Respiratory: Acute hypoxic respiratory failure, h/o noncompliance with CPAP -Patient was intubated on 11/30 with 7.50 ETT at 20 at the lips -S/p BiPAP -A.m. vent settings: Assist-control, rate 18, tidal volume 450, PEEP of 6, 90% FiO2 -Daily CXR and ABG -P.m. ABG as vent changes were made in the morning to decrease rate and FiO2 -Decrease in FiO2 and according to ABG -VAP bundle -See RT notes for titration of vent -Continue SPO2 monitoring GI: Transaminitis -NTR consult for tube feeding -OG tube was placed to suction -Protonix daily -Trend CMP -Likely secondary to cardiac arrest -Hepatitis panel nonreactive : ESRD on HD, hyperkalemia, hyponatremia, metabolic acidosis -HD per nephrology -S/p AV graft creation 11/29 -Daily weights -purwick in place -Renally dose medications -Avoid nephrotoxic medications -s/p bicarb gtt Endo: h/o DM type II -Avoid hypoglycemia -Accu-Cheks every 6 -SSI ID: Leukocytosis -monitor for temp and WBC curve -May be reactive Heme: Thrombocytopenia -noted to be oozing from mouth -Stat CBC/ PT/INR ordered -monitor bleeding -No bleeding noted from OETT -Patient admitted with thrombocytopenia and takes Eliquis at home for A. fib -Trend CBC The high probability of a clinically significant, sudden or life threatening deterioration of the [multi] system(s) required my full and direct attention, intervention and personal management. The aggregate critical care time was [60] minutes. This time is in addition to time spent performing reported procedures but includes the following: [x] Data Review and interpretation [x] Patient assessment and monitoring of vital signs [x] Documentation [x] Medication orders and management Disposition Plan: icu Total Time Spent with Patient (Minutes): 60 History Interval history: This is a 70-year-old female with BUBBA (noncompliant with CPAP), CAD, atrial fibrillation on Eliquis, ESRD on HD, s/p thyroid nodule removal, DM, anemia, morbid obesity who was admitted to the hospital for aVF creation complicated by hypotension and hypoxia in the PACU however patient recovered from episode and was admitted to telemetry for observation. Overnight patient had a cardiac arrest and was transferred to ICU. 11/30: Overnight patient had a cardiac arrest on the floor, was intubated and transported to ICU where she had another cardiac arrest. This morning patient was maxed on Levophed, vasopressin, epinephrine and sodium bicarb drip. Central venous line was placed this morning. This afternoon patient developed blood- tinged secretions from her mouth and was started on Protonix daily. Stat labs ordered. Patient's abdominal x-ray showed possible ileus and NG tube was placed to suction. She also developed A. fib with RVR and was given metoprolol IV and epinephrine drip was turned off. Hospitalist Physical - Constitutional Vitals: Temp Pulse Resp BP Pulse Ox 97.7 F 128 H 24 153/46 100 11/30/20 15:50 11/30/20 16:58 11/30/20 15:31 11/30/20 16:58 11/30/20 16:58 General appearance: Present: mild distress, well-nourished - EENT Eyes: Present: PERRL ENT: poor dentition - Neck Neck: Present: normal ROM - Respiratory Respiratory effort: normal Respiratory: bilateral: diminished - Cardiovascular Rhythm: regular Heart Sounds: Present: S1 & S2. Absent: systolic murmur, diastolic murmur - Extremities Extremities: no ischemia, pulses intact, pulses symmetrical, normal temperature, normal color Extremity abnormal: edema Peripheral Pulses: within normal limits - Abdominal General gastrointestinal: soft, non-tender, non-distended, normal bowel sounds - Integumentary Integumentary: Present: warm, dry - Psychiatric Psychiatric: depressed, other (not interactive) - Neurologic Neurologic: other (not interactive, not following commands, intact cough/gag) - Allied Health Allied health notes reviewed: nursing, RT, social work HEART Score - HEART Score Risk factors: 1-2 risk factors Troponin: < normal limit - Critical Actions Critical Actions: 0-3 pts:0.9-1.7%risk of adverse cardiac event.Candidate for discharge Results - Labs CBC & Chem 7: 11/29/20 18:22 11/30/20 04:11 Labs: Laboratory Last Values WBC 12.2 K/mm3 (4.5-11.0) H 11/29/20 18: RBC 3.75 M/mm3 (3.65-5.03) 11/29/20 18: Hgb 9.8 gm/dl (10.1-14.3) L 11/29/20 18: Hct 32.9 % (30.3-42.9) 11/29/20 18: MCV 88 fl (79-97) 11/29/20 18: MCH 26 pg (28-32) L 11/29/20 18: MCHC 30 % (30-34) 11/29/20 18: RDW 18.4 % (13.2-15.2) H 11/29/20 18: Plt Count 94 K/mm3 (140-440) L 11/29/20 18: Lymph % (Auto) 6.7 % (13.4-35.0) L 11/29/20 18: [place] % (Auto) 7.2 % (0.0-7.3) 11/29/20 18: Eos % (Auto) 0.0 % (0.0-4.3) 11/29/20 18: Baso % (Auto) 0.4 % (0.0-1.8) 11/29/20 18: Lymph # (Auto) 0.8 K/mm3 (1.2-5.4) L 11/29/20 18: [place] # (Auto) 0.9 K/mm3 (0.0-0.8) H 11/29/20 18: Eos # (Auto) 0.0 K/mm3 (0.0-0.4) 11/29/20 18: Baso # (Auto) 0.0 K/mm3 (0.0-0.1) 11/29/20 18:22 Seg Neutrophils % 85.7 % (40.0-70.0) H 11/29/20 18:22 Seg Neutrophils # 10.4 K/mm3 (1.8-7.7) H 11/29/20 18:22 ABG pH 7.527 (7.320-7.450) H 11/30/20 16:13 POC ABG pCO2 23.4 mmHg (32.0-48.0) L 11/30/20 16:13 POC ABG pO2 224.6 mmHg (83-108) H 11/30/20 16:13 POC ABG HCO3 19.0 11/30/20 16:13 ABG O2 Saturation 99.6 (0-100) 11/30/20 16:13 POC ABG Base Excess -2.5 11/30/20 16:13 ABG Hemoglobin 10.5 (12.0-17.5) L 11/30/20 16:13 ABG Oxyhemoglobin 98.8 (94-98) H 11/30/20 16:13 ABG Methemoglobin 0.3 (0.0-1.5) 11/30/20 16:13 ABG Sodium 135.6 mmol/L (136.0-145.0) L 11/30/20 16:13 ABG Potassium 3.4 mmol/L (3.40-4.50) 11/30/20 16:13 ABG Chloride 100.0 mmol/L (98-107) 11/30/20 16:13 ABG Glucose 136 mg/dL (65-95) H 11/30/20 16:13 Carboxyhemoglobin 0.5 (0.5-1.5) 11/30/20 16:13 FiO2 % 90.0 11/30/20 16:13 Sodium 134 mmol/L (137-145) L 11/30/20 04:11 Potassium 7.3 mmol/L (3.6-5.0) H* D 11/30/20 04:11 Chloride 99.7 mmol/L (98-107) 11/30/20 04:11 Carbon Dioxide 12 mmol/L (22-30) L D 11/30/20 04:11 Anion Gap 30 mmol/L 11/30/20 04:11 BUN 40 mg/dL (7-17) H 11/30/20 04:11 Creatinine 3.9 mg/dL (0.6-1.2) H 11/30/20 04:11 Estimated GFR 14 ml/min 11/30/20 04:11 BUN/Creatinine Ratio 10 % 11/30/20 04:11 Glucose 86 mg/dL (65-100) 11/30/20 04:11 POC Glucose 65 mg/dL (70-105) L 11/30/20 11:38 Calcium 8.7 mg/dL (8.4-10.2) 11/30/20 04:11 Total Bilirubin 0.80 mg/dL (0.1-1.2) 11/30/20 04:11 AST 4588 units/L (5-40) H 11/30/20 04:11 ALT 1822 units/L (7-56) H 11/30/20 04:11 Alkaline Phosphatase 82 units/L (35-129) 11/30/20 04:11 Total Protein 5.9 g/dL (6.3-8.2) L 11/30/20 04:11 Albumin 3.0 g/dL (3.9-5) L 11/30/20 04:11 Albumin/Globulin Ratio 1.0 % 11/30/20 04:11 Arterial Blood Glucose 136 mg/dL (65-95) H 11/30/20 16:13 Arterial Blood Ionized Calcium 4.1 mg/dL (4.6-5.3) L 11/30/20 16:13 Coronavirus (PCR) Negative (Negative) 11/22/20 13:15 Hepatitis A IgM Ab Non-reactive (NonReactive) 11/30/20 08:00 Hep Bs Antigen Nonreactive (Negative) 11/30/20 08:00 Hep B Core IgM Ab Non-reactive (NonReactive) 11/30/20 08:00 Hepatitis C Antibody Non-reactive (NonReactive) 11/30/20 08:00 [place]/IV: Voiding Method Diaper Active Medications - Current Medications Current Medications: Generic Name Dose Route Start Last Admin Trade Name Freq PRN Reason Stop Dose Admin Acetaminophen 650 mg 11/29/20 17:28 Acetaminophen 325 Mg Tab PO Q4H PRN Pain MILD(1-3)/Fever >100.5/[place] Albuterol/Ipratropium 1 ampul 11/30/20 08:00 11/30/20 11:46 Ipratropium/Albuterol Sulfate 3 Ml Ampul.Neb IH Not Given QIDRT MILENA Dextrose 25 ml 11/30/20 05:15 Dextrose 50% In Water (25gm) 50 Ml Syringe IV Q30MIN PRN Hypoglycemia Protocol Hydromorphone HCl 0.5 mg 11/29/20 17:28 Hydromorphone 1 Mg/1 Ml Inj IV Q3H PRN Pain , Severe (7-10) Sodium Chloride 1,000 mls @ 75 mls/hr 11/29/20 08:00 11/29/20 07:25 Nacl 0.9% 1000 Ml IV 42 mls/hr DIRECT MILENA Administration Epinephrine 16 mg/ Sodium 250 mls @ 1.875 mls/hr 11/30/20 06:00 11/30/20 08:00 Chloride IV 12/01/20 23:59 10 mcg/min TITR MILENA 9.375 mls/hr Titration Protocol 2 MCG/MIN Sodium Bicarbonate 150 meq/ 1,150 mls @ 125 mls/hr 11/30/20 06:00 11/30/20 08:10 Dextrose IV 125 mls/hr DIRECT MILENA Administration Norepinephrine 4 mg in 250 mls @ 7.5 mls/hr 11/30/20 06:00 11/30/20 08:44 Levophed Drip 4 Mg/Ns 250 Ml IV 20 mcg/min TITR MILENA 75 mls/hr Administration Protocol 2 MCG/MIN Vasopressin 20 unit/ Sodium 101 mls @ 9.09 mls/hr 11/30/20 06:00 Chloride IV TITR MILENA Protocol 0.03 UNITS/MIN Metoprolol Tartrate 5 mg 11/30/20 17:56 Metoprolol Tartrate 5 Mg/5 Ml Inj IV 11/30/20 17:57 ONCE ONE Morphine Sulfate 2 mg 11/29/20 17:28 Morphine 2 Mg/1 Ml Inj IV Q4H PRN Pain, Moderate (4-6) Ondansetron HCl 4 mg 11/29/20 17:28 Ondansetron 4 Mg/2 Ml Inj IV Q8H PRN Nausea And Vomiting Pantoprazole Sodium 40 mg 11/30/20 18:00 Pantoprazole 40 Mg Inj IV QDAY MILENA Sodium Chloride 10 ml 11/29/20 22:00 Sodium Chloride 0.9% 10 Ml Flush Syringe IV BID MILENA Sodium Chloride 10 ml 11/29/20 17:28 Sodium Chloride 0.9% 10 Ml Flush Syringe IV PRN PRN LINE FLUSH Nutrition/Malnutrition Assess - Dietary Evaluation Nutrition/Malnutrition Findings: Nutrition Notes Start: 11/30/20 11:51 Freq: Status: Active Protocol: Document 11/30/20 11:51 SG (Rec: 11/30/20 12:02 SG [id number]) Nutrition Notes Initial or Follow up Brief Note Current Diagnosis CKD (stage V CKD),Respiratory Failure Other Pertinent Diagnosis hyperkalemia, hypotension, Current Diet NPO Labs/Tests Na 134 Pertinent Medications Epinephrine Vasopressin Height 5 ft 5 in Weight 90.718 kg [place] Body Weight (kg) 56.81 BMI 33.3 Weight Status Overweight Subjective/Other Information RD consulted for Malnutrition screen. Pt had recent surgery for fistula and became inpationt due to hypotension. Pt coded and recently intubated awaiting dialysis Burn Absent Trauma Absent Current % PO Negligible Is patient on ventilator? No Is Patient Ambulatory and/or Out of Bed No REE-([facility]-confined to bed) 1719.300 Kcal/Kg value to use for calculation 14 Approximate Energy Requirements Using 1270 kcal/Kg Calculation Used for Recommendations Kcal/kg Additional Notes Protein > 2 g/kg IBW: <114 g/ day fluid: 1000-1500ml/day Nutrition Intervention Follow-Up By: 12/01/20 Additional Comments Pt, respiratory status/ possible TF/oralintake
[2020-11-30] MEDS ORDERED: METOPROLOL TARTRATE 5 MG/5 ML INJ IV ONE (17:56)
[2020-11-30] MEDS ORDERED: METOPROLOL TARTRATE 5 MG/5 ML INJ IV NR (17:56)
[2020-11-30] MEDS ORDERED: PANTOPRAZOLE 40 MG INJ IV SCH (18:00)
[2020-11-30 18:05] LABS: Hematocrit 30.8 % (30.3-42.9); Hemoglobin 9.8 gm/dl (10.1-14.3); Mean Corpuscular HGB Conc 32 % (30-34); Mean Corpuscular Volume 83 fl (79-97); Platelet Count 119 K/mm3 (140-440); Red Blood Count 3.73 M/mm3 (3.65-5.03)
--- NOTE | 2020-11-30 18:33 | Death Summary ---
Summary - Providers Date of service: 11/30/20 Consults: 11/29/20 14:07 Consult to Physician [CONS] Routine Comment: Consulting Provider: JOSE DE JESUS MORA Physician Instructions: Reason For Exam: MEDICAL MANAGEMENT 11/30/20 02:54 Consult to Physician [CONS] Routine Comment: Consulting Provider: MARTHA MAI Physician Instructions: Reason For Exam: Respiratory failure 11/30/20 05:09 Consult to Physician [CONS] Routine Comment: spoke to Toño / Renetta Consulting Provider: GUANAKO EDWARDS Physician Instructions: Reason For Exam: Hyperkalemia 11/30/20 17:46 Consult to Physician [CONS] Routine Comment: Consulting Provider: DON GÓMEZ Physician Instructions: Reason For Exam: s/p cardiac arrest Attending: DAMIAN RAVI MD - summary Date of admission: 11/30/20 09:49 Date of : 11/30/20 Reason for admission: s/p cardiac arrest, ESRD on HD, afib with rvr Procedures/treatments rendered: This is a 70-year-old female with BUBBA (noncompliant with CPAP), CAD, atrial fibrillation on Eliquis, ESRD on HD, s/p thyroid nodule removal, DM, anemia, morbid obesity who was admitted to the hospital for aVF creation complicated by hypotension and hypoxia in the PACU however patient recovered from episode and was admitted to telemetry for observation. Overnight patient had a cardiac arrest and was transferred to ICU. Overnight patient had a cardiac arrest on 11/30 on the floor, was intubated and transported to ICU where she had another cardiac arrest. This morning patient was maxed on Levophed, vasopressin, epinephrine and sodium bicarb drip. Central venous line was placed this morning. This afternoon patient developed blood-tinged secretions from her mouth and was started on Protonix daily. Stat labs ordered. Patient's abdominal x-ray showed possible ileus and NG tube was placed to suction. She also developed A. fib with RVR and was given metoprolol IV and epinephrine drip was turned off. Patient's heart rate responded to Lopressor however she became hypotensive and Levophed was increased. Vasopressor ordered. Unfortunately patient had another cardiac arrest and this time despite resuscitative efforts patient was unable to be revived. Time of [address] Mora. Family was contacted by Dr. Perez. Acute metabolic encephalopathy s/p cardiac arrest x2 Hypotenson A. fib RVR h/o htn/A. fib (on home metoprolol and beta-mitali) Acute hypoxic respiratory failure h/o noncompliance with CPAP Transaminitis ESRD on HD, hyperkalemia, hyponatremia, metabolic acidosis Hypoglycemia h/o DM type II Leukocytosis Thrombocytopenia non CCT: 30 mins - Final diagnosis (1) Cardiac arrest Note: Final diagnosis: (2) Acute respiratory failure with hypoxia and hypercarbia Note: Final diagnosis: (3) Hyperkalemia Note: Final diagnosis: (4) Hypotension Qualifiers: Hypotension type: unspecified hypotension type Qualified Code(s): I95.9 - Hypotension, unspecified Note: Final diagnosis: (5) End stage renal disease on dialysis Note: Final diagnosis: (6) Atrial fibrillation with RVR Note: Final diagnosis: (7) CHF (congestive heart failure) Qualifiers: Qualified Code(s): I50.9 - Heart failure, unspecified Note: Final diagnosis: (8) Diabetes Note: Final diagnosis: (9) HTN (hypertension) Note: Final diagnosis:
[2020-11-30 18:49] VITALS: BP 79/37
[2020-11-30 18:59] LABS: INR 9.14 (0.87-1.13)
[2020-11-30 20:32] LABS: Total Cells Counted 100
[2020-11-30 20:33] LABS: Poikilocytosis Few; Tear Drop Cells Rare
[2020-11-30 20:38] LABS: Crenated RBC Few; Ovalocytes 1+; Schistocytes 1+
[2020-11-30 20:39] LABS: Platelet Estimate Consistent w Auto
--- NOTE | 2020-12-01 17:52 | Event Note ---
Date: 11/30/20 JUDITH CONTRERAS was called around 1805 hrs. ACLS protocol was initiated Patient was in flatline and could not be revived in spite of epinephrine and bicarb x2. No pulse was felt. Because of flatline JUDITH CONTRERAS was called off. Time of expiration 1815 hrs.
--- NOTE | 2020-12-02 08:44 | Electrocardiograph Report ---
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
[2020-12-02] MEDS ORDERED: SODIUM CHLORIDE 0.9% 1000 ML IV SOLN ONE (15:34)
[2020-12-02] MEDS ORDERED: SODIUM CHLORIDE 0.9% 500 ML IVPB ONE (15:34)
== END 2020-11-30 18:15 | DRG 264 ==
LOC: OR 06:37 → 4A 17:28 → CC1 11-30 03:02 → OBSVTOIN 11-30 09:49
PROVIDERS: ADMIT Internal Medicine; ATTEND Internal Medicine
PROC: 03180ZD Bypass Left Brachial Artery to Upper Arm Vein, Open Approach (ICD-10-PCS; principal; 2020-11-29)
PROC: 02H633Z Insertion of Infusion Device into Right Atrium, Percutaneous Approach (ICD-10-PCS; 2020-11-29)
PROC: 4A033R1 Measurement of Arterial Saturation, Peripheral, Percutaneous Approach (ICD-10-PCS; 2020-11-29)
PROC: 5A1D70Z Performance of Urinary Filtration, Intermittent, Less than 6 Hours Per Day (ICD-10-PCS; 2020-11-30)
PROC: 0BH17EZ Insertion of Endotracheal Airway into Trachea, Via Natural or Artificial Opening (ICD-10-PCS; 2020-11-30)
PROC: 5A1935Z Respiratory Ventilation, Less than 24 Consecutive Hours (ICD-10-PCS; 2020-11-30)
PROC: 5A09357 Assistance with Respiratory Ventilation, Less than 24 Consecutive Hours, Continuous Positive Airway Pressure (ICD-10-PCS; 2020-11-30)
PROC: 5A12012 Performance of Cardiac Output, Single, Manual (ICD-10-PCS; 2020-11-30)
PROC: 02HV33Z Insertion of Infusion Device into Superior Vena Cava, Percutaneous Approach (ICD-10-PCS; 2020-11-30)
PROC: B548ZZA Ultrasonography of Superior Vena Cava, Guidance (ICD-10-PCS; 2020-11-30)
DX: I13.2 Hypertensive heart and chronic kidney disease with heart failure and with stage 5 chronic kidney disease, or end stage renal disease (principal); N18.6 End stage renal disease; J96.01 Acute respiratory failure with hypoxia; J96.02 Acute respiratory failure with hypercapnia; G93.41 Metabolic encephalopathy; E87.1 Hypo-osmolality and hyponatremia; E87.2 Acidosis; I48.20 Chronic atrial fibrillation, unspecified; I50.9 Heart failure, unspecified; I95.9 Hypotension, unspecified; I25.10 Atherosclerotic heart disease of native coronary artery without angina pectoris; E11.22 Type 2 diabetes mellitus with diabetic chronic kidney disease; Z68.33 Body mass index [BMI] 33.0-33.9, adult; D64.9 Anemia, unspecified; I46.9 Cardiac arrest, cause unspecified; E87.5 Hyperkalemia; D72.829 Elevated white blood cell count, unspecified; E66.01 Morbid (severe) obesity due to excess calories; G47.33 Obstructive sleep apnea (adult) (pediatric); R74.01 Elevation of levels of liver transaminase levels; D69.6 Thrombocytopenia, unspecified; Z20.822 Contact with and (suspected) exposure to COVID-19; Z79.01 Long term (current) use of anticoagulants
CPT/HCPCS: 36415; 36600; 64450; 71045; 74018; 80048; 80053; 80074; 82805; 82962; 85007; 85025; 85027; 85610; 92950; 93005; 94002; 94003; 94660; G0378; C9113; J0171; J0610; J0690; J1644; J1815; J2250; J2370; J2405; J2704; J3010; J3490; J7030; J7040; J7050; J7070; U0003